=== PATIENT | male | born 1990 | race Two or more races ===

== ENCOUNTER 2022-08-21 07:18 | Emergency (ER) | payer OTHER ==
[~2022-08-21] VITALS: Ht 185.4 cm; Wt 98.9 kg
[~2022-08-21 07:18] MED LIST: ALBU90OI INH; AMOCLA500 PO; CEPH500 PO; CRUTCH3 USE; HYDACE5 PO; IBUP800; Monodox100 MG PO; NAPR500 PO; Naproxen500 MG PO; Norco 5-325 Ta1 EACH PO; OXYACE5T PO; SPACE CHAMBER1 EACH MC; SULTRIDS PO; TRAM50 PO; Ventolin Soln3 ML INH
[2022-08-21 08:57] LABS: BASOPHILS ABSOLUTE AUTO 0.04 K/mm3 (0.00-0.23); BASOPHILS PERCENT AUTO 1 % (0-2); EOSINOPHILS ABSOLUTE AUTO 0.15 K/mm3 (0.00-0.68); EOSINOPHILS PERCENT AUTO 3 % (0-6); Hematocrit 42.4 % (37.0-53.0); Hemoglobin 14.2 g/dL (13.5-17.5); IMMATURE GRAN ABSOLUTE AUTO 0.01 K/mm3 (0.00-0.10); IMMATURE GRAN PERCENT AUTO 0 % (0-1); LYMPHOCYTES ABSOLUTE AUTO 1.47 K/mm3 (0.84-5.20); LYMPHOCYTES PERCENT AUTO 30 % (21-46); MONOCYTES ABSOLUTE AUTO 0.55 K/mm3 (0.16-1.47); MONOCYTES PERCENT AUTO 11 % (4-13); Mean Corpuscular HGB 26.6 pg (26.0-34.0); Mean Corpuscular HGB Conc 33.5 g/dL (31.5-36.5); Mean Corpuscular Volume 80 fL (80-100); Mean Platelet Volume 9.6 fL (9.1-12.4); NEUTROPHILS ABSOLUTE AUTO 2.61 K/mm3 (1.96-9.15); NEUTROPHILS PERCENT AUTO 54 % (41-73); Platelet Count 171 K/mm3 (150-400); RDW Coefficient Variation 13.6 % (11.7-14.2); Red Blood Cell Count 5.33 M/mm3 (4.30-5.90); White Blood Cell Count 4.83 K/mm3 (4.00-11.30)
[2022-08-21 09:14] LABS: Albumin, Blood 3.7 g/dL (3.4-5.0); Bilirubin, Direct 0.2 mg/dL (0.0-0.3); Bilirubin, Indirect 0.6 mg/dL (0.1-0.7); Bilirubin, Total 0.8 mg/dL (0.1-1.0); Bun/Creatinine Ratio 23.5 (12.0-20.0); Calcium, Blood 8.9 mg/dL (8.5-10.1); Creatinine, Blood 0.64 mg/dL (0.60-1.20); Globulin, Blood 3.8 g/dL (2.2-4.0); Potassium, Blood 4.1 mmol/L (3.5-5.5); Total Protein, Blood 7.5 g/dL (6.4-8.2)
[2022-08-21] MEDS ORDERED: Omeprazole20 M1 PO (09:55)
== END 2022-08-21 10:06 | disposition home or self-care (01) ==
LOC: ER 07:18
PROVIDERS: Physician Assistant
DX: K92.0 Hematemesis (principal); Z79.899 Other long term (current) drug therapy; F17.200 Nicotine dependence, unspecified, uncomplicated
CPT/HCPCS: 36415; 80048; 80076; 85025; C9113

== ENCOUNTER 2022-12-04 12:06 | Day surgery (SDC) | payer OTHER ==
[~2022-12-04] VITALS: Ht 182.9 cm; Wt 93.0 kg
[~2022-12-04 12:06] MED LIST changes: +Omeprazole20 M1 PO
== END 2022-12-04 15:10 | disposition home or self-care (01) ==
LOC: ORSCSDS 12:06
PROVIDERS: Student in an Organized Health Care Education/Training Program
PROC: 0DB58ZX Excision of Esophagus, Via Natural or Artificial Opening Endoscopic, Diagnostic (ICD-10-PCS; principal; 2022-12-04 14:00)
DX: K92.0 Hematemesis (principal); K22.70 Barrett's esophagus without dysplasia; K44.9 Diaphragmatic hernia without obstruction or gangrene; B18.2 Chronic viral hepatitis C; Z87.891 Personal history of nicotine dependence; Z79.899 Other long term (current) drug therapy
CPT/HCPCS: 88305; J0330; J0461; J2250; J2405; J2704; J7120; Q9968

== ENCOUNTER 2024-03-04 10:42 | Day surgery (SDC) | payer SELFPAY ==
[~2024-03-04] VITALS: Ht 182.9 cm; Wt 87.3 kg
[~2024-03-04 10:42] MED LIST changes: +OMEP20ER PO; +Ropivacaine 0.5% HCl/Pf 5 MG/ML 20ML VIAL ONE
[2024-03-04] MEDS ORDERED: CeFAZolin Sodium 2,000 MG VIAL ONE (10:51)
[2024-03-04] MEDS ORDERED: NS 50 ML IV ONE (10:51)
[2024-03-04] MEDS ORDERED: FentaNYL Citrate 50 MCG/ML 2 ML Injection ONE (11:19)
[2024-03-04] MEDS ORDERED: propofoL 20 ML IV ONE (11:19)
[2024-03-04] MEDS ORDERED: Dexamethasone Sod Phos 10 MG/ML 1ML VIAL ONE (11:22)
[2024-03-04] MEDS ORDERED: Ondansetron HCl 2 MG / ML 2ML Vial ONE (11:22)
[2024-03-04] MEDS ORDERED: Ketorolac Tromethamine 30mg Vial ONE (11:23)
[2024-03-04] MEDS ORDERED: Lactated Ringer's 1,000 ML IV ONE ×2 (11:25→13:38)
[2024-03-04] MEDS ORDERED: Midazolam HCl 1MG / ML 2ML Vial ONE (11:52)
[2024-03-04] MEDS ORDERED: EPINEPhrine HCl 1 MG/ML 1ML Amp XX ONE (12:16)
[2024-03-04] MEDS ORDERED: Lidocaine HCl 2% 20 ML MDV INJ ONE (12:16)
--- NOTE | 2024-03-04 12:19 | NUR ---
03/04/24 1219 Lashawn Sheikh ROPIVACAINE 0.5% 20MLS MIXED AND VERIFIED W/ EPI 0.1MG (1MG/ML) TO MAKE ROPIVACAINE 0.5% W/ EPI 1:200,000 FOR INJECTION AT OPSITE ON THE FIELD BY DR. BHATIA
[2024-03-04 14:49] VITALS: BP 141/83
--- NOTE | 2024-03-04 15:59 | NUR ---
03/04/[address] OFFICE CAME AND DROPPED OFF CRUTCHES FOR PT.
== END 2024-03-04 16:05 | disposition home or self-care (01) ==
LOC: ORSCSDS 10:42
PROVIDERS: Podiatrist Foot & Ankle Surgery
PROC: 0QSR04Z Reposition Left Toe Phalanx with Internal Fixation Device, Open Approach (ICD-10-PCS; principal; 2024-03-04 12:00)
PROC: 0QBP0ZZ Excision of Left Metatarsal, Open Approach (ICD-10-PCS; principal; 2024-03-04 12:00)
PROC: 0QSP04Z Reposition Left Metatarsal with Internal Fixation Device, Open Approach (ICD-10-PCS; principal; 2024-03-04 12:00)
DX: M77.42 Metatarsalgia, left foot (principal); M20.12 Hallux valgus (acquired), left foot; M79.672 Pain in left foot; I10 Essential (primary) hypertension; K21.9 Gastro-esophageal reflux disease without esophagitis; Z87.891 Personal history of nicotine dependence; Z79.899 Other long term (current) drug therapy
CPT/HCPCS: C1713; J0171; J0690; J1100; J1885; J2250; J2405; J2704; J2795; J3010; J7120

== ENCOUNTER 2024-11-01 05:53 | Day surgery (SDC) | payer SELFPAY ==
[~2024-11-01] VITALS: Ht 182.9 cm; Wt 84.3 kg
[2024-11-01] VITALS (8 sets, daily range): BP systolic 135–160; BP diastolic 80–106
[~2024-11-01 05:53] MED LIST changes: +MAGCHL64ER; -Ropivacaine 0.5% HCl/Pf 5 MG/ML 20ML VIAL ONE; +VITAMIN B-610 MG; +Vitamin B-1250 MC1; +ZINC15
[2024-11-01] MEDS ORDERED: Lactated Ringer's 1,000 ML IV SCH (06:25)
[2024-11-01] MEDS ORDERED: CeFAZolin Sodium 2,000 MG in NS 100 ML IV SCH (06:25)
[2024-11-01] MEDS ORDERED: CeFAZolin Sodium 2,000 MG VIAL ONE (06:37)
--- NOTE | 2024-11-01 06:40 | NUR ---
Ambulatory in Day Surgery History, Chart, Medications and Allergies reviewed before start of procedure. Pre-Op teaching done. Pt verbalizes understanding. Patient States Post-Procedure ride home has been arranged.
[2024-11-01] MEDS ORDERED: FentaNYL Citrate 50 MCG/ML 2 ML Injection ONE (06:59)
[2024-11-01] MEDS ORDERED: propofoL 0 ML IV ONE (06:59)
[2024-11-01] MEDS ORDERED: Bupivacaine 0.5% HCl 5 MG/ML 30MLVIAL ONE (07:03)
[2024-11-01] MEDS ORDERED: propofoL 20 ML IV ONE (07:23)
[2024-11-01] MEDS ORDERED: Ondansetron HCl 2 MG / ML 2ML Vial ONE (07:38)
[2024-11-01] MEDS ORDERED: Ketorolac Tromethamine 30mg Vial ONE (07:38)
[2024-11-01] MEDS ORDERED: Dexamethasone Sod Phos 10 MG/ML 1ML VIAL ONE (07:38)
[2024-11-01] MEDS ORDERED: HYDROcodone 5-APAP 325 TAB PO PRN (08:10)
--- NOTE | 2024-11-01 09:32 | NUR ---
Patient up to Ambulate independently. Gait steady. Discharge instructions reviewed with patient. Patient verbalizes understanding. Copy given to patient to take home. Patient States Post-Procedure ride home has been arranged. Discharged via wheelchair to private car for ride home. PT DRESSING C/D/I. PT TOLERATING PO. REPORTS READY TO GO HOME. PT REPORTS PAIN TOLERABLE.
== END 2024-11-01 09:32 | disposition home or self-care (01) ==
LOC: ORSCMMR 05:53 → ORD 07:30 → ORSCMMR 09:32
PROVIDERS: Surgery
PROC: 0WQF0ZZ Repair Abdominal Wall, Open Approach (ICD-10-PCS; principal; 2024-11-01 07:30)
DX: K42.9 Umbilical hernia without obstruction or gangrene (principal); Z87.891 Personal history of nicotine dependence
CPT/HCPCS: A9270; J0690; J1100; J1885; J2405; J2704; J3010; J7120